=== PATIENT | female | born 1970 | race Caucasian/White ===

== ENCOUNTER 2019-08-13 18:17 | Outpatient (CLI) | payer BC | END 2019-08-13 18:18 | disposition home or self-care (01) | LOC: COV 18:17 | PROVIDERS: ATTEND Family Medicine | DX: R05 Cough (principal) ==

== ENCOUNTER 2024-01-06 10:23 | Outpatient (CLI) | payer OTHER ==
--- NOTE | 2024-01-09 22:11 | Ultrasound Report ---
PROCEDURE: Soft Tissue Head or Neck INDICATIONS: LYMPHADENOPATHY TECHNIQUE: Real-time scanning was performed of the left neck and right cheek, with image documentation. COMPARISON: None FINDINGS: Left cheek palpable mass likely corresponds to the parotid gland measuring 2.0 x 0.6 x 0.4 cm. No other masses, fluid collections or lymphadenopathy seen in the region of interest. Within the left neck in the region of the palpable abnormality, lymph node is seen measuring 4 mm in maximal short axis. IMPRESSION: 1. Left cheek palpable abnormality likely corresponds to the parotid gland. 2. Palpable left neck abnormality appears to be a 4 mm lymph node. Reviewed by: YONAS Sharma on 01/09/2024 10:10 PM PDT Approved by: Sandy De La Cruz MD on 01/09/2024 10:10 PM PDT Station ID: [id number]
== END 2024-01-06 10:24 | disposition home or self-care (01) ==
LOC: DI 10:23
PROVIDERS: ATTEND Family Medicine
DX: R59.1 Generalized enlarged lymph nodes (principal)

== ENCOUNTER 2024-01-08 15:00 | Outpatient (CLI) | payer OTHER ==
[2024-01-08] MEDS: ALBUTEROL 1 PUFF INH STA (16:16)
== END 2024-01-08 15:01 | disposition home or self-care (01) ==
LOC: RT 15:00
PROVIDERS: ATTEND Family Medicine
DX: R06.09 Other forms of dyspnea (principal); R07.89 Other chest pain
CPT/HCPCS: 94060

== ENCOUNTER 2024-01-15 08:23 | Outpatient (CLI) | payer OTHER ==
[2024-01-15 08:39] LABS: BASOPHILS % (AUTO) 0.5 %; EOSINOPHILS # (AUTO) 0.2 10^3/uL (0.0-0.7); EOSINOPHILS % (AUTO) 4.8 %; HCT - HEMATOCRIT 45.4 % (37.0-47.0); HGB - HEMOGLOBIN 14.5 g/dL (12.0-16.0); LYMPHOCYTES # (AUTO) 1.5 10^3/uL (1.5-3.5); LYMPHOCYTES % (AUTO) 37.6 %; MEAN CORPUSCULAR HEMOGLOBIN 30.9 pg (27.0-31.0); MEAN CORPUSCULAR HGB CONC 31.9 g/dL (32.0-36.0); MEAN CORPUSCULAR VOLUME 96.8 fL (81.0-99.0); MEAN PLATELET VOLUME 10.3 fL (7.9-10.8); MONOCYTES # (AUTO) 0.4 10^3/uL (0.0-1.0); MONOCYTES % (AUTO) 10.5 %; NEUTROPHILS # (AUTO) 1.9 10^3/uL (1.5-6.6); NEUTROPHILS % (AUTO) 46.3 %; PLT - PLATELET COUNT 230 10^3/uL (130-450); RED BLOOD COUNT 4.69 10^6/uL (4.20-5.40); RED CELL DISTRIBUTION WIDTH 12.7 % (12.0-15.0)
[2024-01-15 08:54] LABS: ALBUMIN 4.5 g/dL (3.2-5.5); ALKALINE PHOSPHATASE 36 IU/L (42-121); ALT ALANINE AMINOTRANSFERASE 15 IU/L (10-60); AST ASPARTATE AMINOTRANSFERASE 16 IU/L (10-42); BILIRUBIN,TOTAL 0.5 mg/dL (0.2-1.0); BUN - BLOOD UREA NITROGEN 11 mg/dL (6-20); CALCIUM 9.4 mg/dL (8.5-10.3); CARBON DIOXIDE - CO2 30 mmol/L (21-32); CHLORIDE 107 mmol/L (101-111); CHOL/HDL RATIO 2.8 (<4.4); CHOLESTEROL 244 mg/dL; CREATININE 0.9 mg/dL (0.6-1.3); CRP - C-REACTIVE PROTEIN < 0.5 mg/dL (<0.5); GFR - MDRD 66 (>89); GLUCOSE 96 mg/dL (74-104); HDL CHOLESTEROL 86 mg/dL; LDL CHOLESTEROL,CALCULATED 142 mg/dL; LDL/HDL RATIO 1.7 (<4.4); POTASSIUM 4.1 mmol/L (3.5-4.5); SODIUM 141 mmol/L (135-145); TOTAL PROTEIN 6.8 g/dL (6.4-8.9); TRIGLYCERIDES 80 mg/dL; VLDL CHOLESTEROL 16 mg/dL
[2024-01-15 09:09] LABS: THYROID STIMULATING HORMONE 1.15 uIU/mL (0.34-5.60)
[2024-01-15 09:15] LABS: FERRITIN 34.6 ng/mL (11.0-306.8)
[2024-01-15 09:22] LABS: ESTIMATED AVERAGE GLUCOSE 94 mg/dL (70-100); HEMOGLOBIN A1c% 4.9 % (4.27-6.07)
[2024-01-15 09:49] LABS: RHEUMATOID FACTOR NEGATIVE (Negative)
[2024-01-16 19:07] LABS: ANTINUCLEAR ANTIBODIES IFA Negative (.)
== END 2024-01-15 08:24 | disposition home or self-care (01) ==
LOC: LAB 08:23
PROVIDERS: ATTEND Family Medicine
DX: R14.0 Abdominal distension (gaseous) (principal); R07.89 Other chest pain; Z82.49 Family history of ischemic heart disease and other diseases of the circulatory system; M25.50 Pain in unspecified joint
CPT/HCPCS: 36415; 80053; 80061; 82728; 83036; 83721; 84443; 85025; 85651; 86038; 86140; 86200; 86430